=== PATIENT | female | born 1995 | race Caucasian/White ===

== ENCOUNTER 2025-08-21 13:41 | Outpatient (CLI) | payer BC, SELFPAY ==
[2025-08-21 22:29] LABS: Bacterial Vaginosis* Negative (Negative); Candida glab/krus NOT DETECTED (No Detected)
== END 2025-08-21 13:42 | disposition home or self-care (01) ==
LOC: FRMREF 13:41
PROVIDERS: Visit Provider Nurse Practitioner Family
DX: N89.8 Other specified noninflammatory disorders of vagina (principal)
CPT/HCPCS: 81513; 87481; 87661